=== PATIENT | female | born 1970 | race Caucasian/White ===

== ENCOUNTER 2018-12-06 23:30 | Emergency (ER) | payer MEDICARE, MEDICAID ==
[2018-12-06] MEDS ORDERED: Ketorolac 60 MG/2 ML SDV IM ONE (23:50)
--- NOTE | 2018-12-06 23:50 | EDM.PDOC ---
ED HPI GENERAL MEDICAL PROBLEM - General Chief Complaint: Lower Extremity Injury/Pain Stated Complaint: lower leg pain Time Seen by Provider: 12/06/18 23:40 Source of Information: Reports: Patient - History of Present Illness INITIAL COMMENTS - FREE TEXT/NARRATIVE: Pranav is a 47 y/o patient who presents to the ER with complaints of bilateral lower leg pain. She has a history of bilateral lower leg injuries and is s/p gastrocnemius resection in both lower extremities. She usually takes Tramadol and Flexeril with good pain relief. Tonight she did fall in the shower, but she denies new injury and states it was because of the pain. She rates the pain 10/ 10 and she took her meds 2 hours ago, but they have not helped tonight. Bilateral Lower Leg Pain Score (Numeric/FACES): 10 - Related Data Allergies Allergy/AdvReac Type Severity Reaction Status Date / Time aspirin Allergy Nausea and Verified 12/06/18 23:54 Vomiting bee venom protein (honey bee) Allergy Anaphylactic Verified 12/06/18 23:54 Shock cefprozil [From Cefzil] Allergy Hives Verified 12/06/18 23:54 codeine Allergy Anaphylactic Verified 12/06/18 23:54 Shock gabapentin Allergy Other Verified 12/06/18 23:54 green pepper Allergy Stomach Verified 12/06/18 23:54 Ache hydroxyzine Allergy Hives Verified 12/06/18 23:54 ibuprofen Allergy Nausea and Verified 12/06/18 23:54 Vomiting Influenza Virus Vaccines Allergy Nausea and Verified 12/06/18 23:54 Vomiting latex Allergy Wheezing Verified 12/06/18 23:54 levofloxacin [From Levaquin] Allergy Nausea and Verified 12/06/18 23:54 Vomiting metformin Allergy Other Verified 12/06/18 23:54 metronidazole Allergy Edema Verified 12/06/18 23:54 mushroom Allergy Nausea and Verified 12/06/18 23:54 Vomiting onion Allergy Stomach Verified 12/06/18 23:54 Ache oxycodone Allergy Hives Verified 12/06/18 23:54 Penicillins Allergy Wheezing Verified 12/06/18 23:54 prednisone Allergy Other Verified 12/06/18 23:54 strawberry Allergy Anaphylactic Verified 12/06/18 23:54 Shock sucralfate [From Carafate] Allergy Other Verified 12/06/18 23:54 Sulfa (Sulfonamide Allergy Hives Verified 12/06/18 23:54 Antibiotics) tomato Allergy Stomach Verified 12/06/18 23:54 Ache Home Meds: Home Meds Acetaminophen 2 tab PO QID PRN 12/06/18 [History] Albuterol Sulfate [Albuterol Sulfate Hfa] 2 puff IH Q4H PRN 12/06/18 [History] Albuterol [Proventil Neb Soln] 2.5 mg INH Q4HR PRN 12/06/18 [History] Albuterol/Ipratropium [DuoNeb 3.0-0.5 MG/3 ML] 3 ml INH Q6H 12/06/18 [History] Betamethasone/Clotrimazole [Lotrisone] 15 gm TOP BID 12/06/18 [History] Celecoxib [CeleBREX] 200 mg PO DAILY 12/06/18 [History] FLUoxetine HCl [Prozac] 20 mg PO DAILY 12/06/18 [History] Fesoterodine Fumarate [Toviaz] 4 mg PO DAILY 12/06/18 [History] Furosemide [Lasix] 20 mg PO DAILY 12/06/18 [History] Levocetirizine Dihydrochloride [Xyzal] 5 mg PO BEDTIME 12/06/18 [History] Metoclopramide HCl [Reglan] 10 mg PO QID PRN 12/06/18 [History] Montelukast Sodium [Singulair] 10 mg PO BEDTIME 12/06/18 [History] Omeprazole Magnesium [Prilosec Otc] 40 mg PO DAILY 12/06/18 [History] QUEtiapine [SEROquel] 100 mg PO ASDIRECTED PRN 12/06/18 [History] Rizatriptan Benzoate [Rizatriptan] 10 mg PO ASDIRECTED PRN 12/06/18 [History] SUMAtriptan [Imitrex] 6 mg SQ ASDIRECTED PRN 12/06/18 [History] Sennosides/Docusate Sodium [Senna-S] 1 each PO BID 12/06/18 [History] Triamcinolone Acetonide [Kenalog 0.1% Crm] 15 gm TOP BID 12/06/18 [History] lamoTRIgine [Lamictal] 25 mg PO DAILY 12/06/18 [History] raNITIdine HCl [Zantac] 150 mg PO BID 12/06/18 [History] tiZANidine [Zanaflex] 4 mg PO ASDIRECTED 12/06/18 [History] Past Medical History Musculoskeletal History: Reports: Other (See Below) (Bilateral L/E Injury) - Past Surgical History Musculoskeletal Surgical History: Reports: Other (See Below) ( Bilateral gastrocnemius resection) Review of Systems - Review of Systems Review Of Systems: See Below Constitutional: Reports: No Symptoms Eyes: Reports: No Symptoms Ears: Reports: No Symptoms Nose: Reports: No Symptoms Mouth/Throat: Reports: No Symptoms Respiratory: Reports: No Symptoms Cardiovascular: Reports: No Symptoms GI/Abdominal: Reports: No Symptoms Genitourinary: Reports: No Symptoms Musculoskeletal: Reports: Leg Pain (bilateral lower) Skin: Reports: No Symptoms Neurological: Reports: No Symptoms Psychiatric: Reports: No Symptoms ED EXAM, GENERAL - Physical Exam Exam: See Below Exam Limited By: No Limitations General Appearance: Alert, WD/WN, No Apparent Distress (adult female) Ears: Normal External Exam, Hearing Grossly Normal Nose: Normal Inspection, Normal Mucosa Throat/Mouth: Normal Inspection, Normal Lips, Normal Teeth, Normal Voice Head: Atraumatic, Normocephalic Neck: Supple Respiratory/Chest: No Respiratory Distress, Lungs Clear, Normal Breath Sounds, Chest Non-Tender Cardiovascular: Normal Peripheral Pulses, Regular Rate, Rhythm, No JVD GI/Abdominal: Soft (Female) Exam: Deferred Rectal (Female) Exam: Deferred Back Exam: Normal Inspection Extremities: Normal Capillary Refill, Leg Pain. No: Increased Warmth, Redness ( note tenderness to both lower legs with palpation, no deformity noted, no obvious injury ) Neurological: Alert, Oriented, CN II-XII Intact Psychiatric: Normal Affect, Normal Mood Skin Exam: Warm, Dry, Intact, Normal Color, No Rash Lymphatic: No Adenopathy Course - Vital Signs Text/Narrative:: The patient was seen by the ASSISTANT CURATOR. Xrays ordered. She was given Toradol 60 mg IM for pain. 0045 Patient reports that she has had very little relief of her pain. ASSISTANT CURATOR asked the patient what works for her due to her extensive allergy list. Patient responded, "I don't know." Dilaudid 1 mg SQ ordered. 0120 Xrays were reviewed by ASSISTANT CURATOR. Patient reported that she was having a decrease in her pain.The patient was given discharge instructions and sent home in stable condition. Last Recorded V/S: Last Vital Signs Temp 36.1 C 12/06/18 23:35 Pulse 80 12/06/18 23:35 Resp 16 12/06/18 23:35 BP 185/77 H 12/06/18 23:35 Pulse Ox - Orders/Labs/Meds Orders: Active Orders 24 hr Category Date Time Status Tibia Fibula Bi [CR] Stat Exams 12/06/18 23:51 Taken HYDROmorphone [Dilaudid] Med 12/07/18 00:46 Once 1 mg SUBCUT ONETIME ONE Medication Orders Hydromorphone HCl (Dilaudid) 1 mg SUBCUT ONETIME ONE Stop: 12/07/18 00:47 Meds: Medications Generic Name Dose Route Start Last Admin Trade Name Freq PRN Reason Stop Dose Admin Hydromorphone HCl 1 mg 12/07/18 00:46 Dilaudid SUBCUT 12/07/18 00:47 ONETIME ONE Discontinued Medications Generic Name Dose Route Start Last Admin Trade Name Freq PRN Reason Stop Dose Admin Ketorolac Tromethamine 60 mg 12/06/18 23:50 12/06/18 23:58 Toradol IM 12/06/18 23:51 60 mg ONETIME ONE Administration - Radiology Interpretation Free Text/Narrative:: XR bilateral lower extremities=no acute findings, note heel spurs (Final report pending) Departure - Departure Time of Disposition: 01:30 Disposition: Home, Self-Care 01 Condition: Good Clinical Impression: Bilateral lower extremity pain - Discharge Information Instructions: Musculoskeletal Pain, Heat Therapy Forms: ED Department Discharge Additional Instructions: -Continue the pain medications that you have at home -Use heat as needed for pain -Follow up with your PCP to discuss further treatment options -Make an appointment to follow up with your Can Filling Machine Operator for recheck - Problem List & Annotations (1) Bilateral lower extremity pain SNOMED Code(s): 08176160 Code(s): M79.604 - PAIN IN RIGHT LEG; M79.605 - PAIN IN LEFT LEG Status: Acute Current Visit: Yes - My Orders Last 24 Hours: My Active Orders 12/06/18 23:51 Tibia Fibula Bi [CR] Stat 12/07/18 00:46 HYDROmorphone [Dilaudid] 1 mg SUBCUT ONETIME ONE - Assessment/Plan Last 24 Hours: My Active Orders 12/06/18 23:51 Tibia Fibula Bi [CR] Stat 12/07/18 00:46 HYDROmorphone [Dilaudid] 1 mg SUBCUT ONETIME ONE
[2018-12-07] MEDS ORDERED: HYDROmorphone 1 MG/ML Syringe SUBCUT ONE (00:46)
--- NOTE | 2018-12-07 08:27 | CR ---
[id number] RAD/RAD Tibia Fibula Right Exam: RAD Tibia Fibula Right Indication:STATUS POST FALL, PAIN. HISTORY OF ORIF BILATERAL. Comparison: No prior imaging for comparison. Discussion: No fracture. Subcutaneous soft tissue edema in the lower leg. Single lateral view of the foot is unremarkable. However if there is clinical concern forefoot injury, dedicated views of the foot are recommended. Impression: As above. Garland Grey MD 12/07/18 0824 Thank you for allowing us to participate in the care of your patient.
--- NOTE | 2018-12-07 08:33 | CR ---
[id number] RAD/RAD Tibia Fibula Left Exam: RAD Tibia Fibula Left Indication:STATUS POST FALL, PAIN. HISTORY OF ORIF BILATERAL. Comparison: No prior imaging for comparison. Discussion: Mild subcutaneous soft tissue edema the lower leg. Bones are normal. Achilles enthesopathy at its calcaneal attachment. Plantar calcaneal spur. Impression: As above. Garland Grey MD 12/07/18 0832 Thank you for allowing us to participate in the care of your patient.
== END 2018-12-07 01:29 | disposition home or self-care (01) ==
LOC: VM.ED 23:30
DX: M79.604 Pain in right leg (principal); M79.605 Pain in left leg; Z88.0 Allergy status to penicillin; Z88.1 Allergy status to other antibiotic agents; Z88.2 Allergy status to sulfonamides; Z88.5 Allergy status to narcotic agent; Z88.6 Allergy status to analgesic agent; Z88.7 Allergy status to serum and vaccine; Z88.8 Allergy status to other drugs, medicaments and biological substances; Z91.018 Allergy to other foods; Z91.030 Bee allergy status; Z91.040 Latex allergy status
CPT/HCPCS: 73590; 96372; 99283; J1170; J1885

== ENCOUNTER 2019-03-09 19:58 | Emergency (ER) | payer MEDICARE, MEDICAID ==
--- NOTE | 2019-03-11 14:51 | EDM.PDOC ---
ED HPI GENERAL MEDICAL PROBLEM - General Chief Complaint: Skin Complaint Stated Complaint: BLISTER ON TOP OF R FOOT Time Seen by Provider: 03/09/19 20:18 Source of Information: Reports: Patient History Limitations: Reports: No Limitations - History of Present Illness INITIAL COMMENTS - FREE TEXT/NARRATIVE: Pt. presents to ER with complaints of rash to top of R foot. Pt. states that she has been using CARLOS hose post knee surgery and has noticed some irritation to her foot after wearing them. He has a history of latex allergy and feels that the irritation was from that. Denies any fever or chills. No chest pain or shortness or breath. Onset: Today Onset Date: 03/11/19 Location: Reports: Lower Extremity, Right Right Knee Pain Score (Numeric/FACES): 6 - Related Data Allergies Allergy/AdvReac Type Severity Reaction Status Date / Time bee venom protein (honey bee) Allergy Anaphylactic Verified 03/09/19 20:04 Shock cefprozil [From Cefzil] Allergy Hives Verified 03/09/19 20:04 codeine Allergy Anaphylactic Verified 03/09/19 20:04 Shock gabapentin Allergy Other Verified 03/09/19 20:04 hydroxyzine Allergy Hives Verified 03/09/19 20:04 ibuprofen Allergy Nausea and Verified 03/09/19 20:04 Vomiting latex Allergy Wheezing Verified 03/09/19 20:04 metformin Allergy Other Verified 03/09/19 20:04 metronidazole Allergy Edema Verified 03/09/19 20:04 oxycodone Allergy Hives Verified 03/09/19 20:04 Penicillins Allergy Wheezing Verified 03/09/19 20:04 prednisone Allergy Other Verified 03/09/19 20:04 strawberry Allergy Anaphylactic Verified 03/09/19 20:04 Shock sucralfate [From Carafate] Allergy Other Verified 03/09/19 20:04 Sulfa (Sulfonamide Allergy Hives Verified 03/09/19 20:04 Antibiotics) aspirin AdvReac Nausea and Verified 03/09/19 20:04 Vomiting green pepper AdvReac Stomach Verified 03/09/19 20:04 Ache Influenza Virus Vaccines AdvReac Nausea and Verified 03/09/19 20:04 Vomiting levofloxacin [From Levaquin] AdvReac Nausea and Verified 03/09/19 20:04 Vomiting mushroom AdvReac Nausea and Verified 01/17/20 20:04 Vomiting onion AdvReac Stomach Verified 03/09/19 20:04 Ache tomato AdvReac Stomach Verified 03/09/19 20:04 Ache Home Meds: Home Meds Acetaminophen 2 tab PO QID PRN 12/06/18 [History] Albuterol Sulfate [Albuterol Sulfate Hfa] 2 puff IH Q4H PRN 12/06/18 [History] Albuterol [Proventil Neb Soln] 2.5 mg INH Q4HR PRN 12/06/18 [History] Albuterol/Ipratropium [DuoNeb 3.0-0.5 MG/3 ML] 3 ml INH Q6H 12/06/18 [History] Betamethasone/Clotrimazole [Lotrisone] 15 gm TOP BID 12/06/18 [History] Celecoxib [CeleBREX] 200 mg PO DAILY 12/06/18 [History] FLUoxetine HCl [Prozac] 20 mg PO DAILY 12/06/18 [History] Fesoterodine Fumarate [Toviaz] 4 mg PO DAILY 12/06/18 [History] Furosemide [Lasix] 20 mg PO DAILY 12/06/18 [History] Levocetirizine Dihydrochloride [Xyzal] 5 mg PO BEDTIME 12/06/18 [History] Metoclopramide HCl [Reglan] 10 mg PO QID PRN 12/06/18 [History] Montelukast Sodium [Singulair] 10 mg PO BEDTIME 12/06/18 [History] Omeprazole Magnesium [Prilosec Otc] 40 mg PO DAILY 12/06/18 [History] QUEtiapine [SEROquel] 100 mg PO ASDIRECTED PRN 12/06/18 [History] Rizatriptan Benzoate [Rizatriptan] 10 mg PO ASDIRECTED PRN 12/06/18 [History] SUMAtriptan [Imitrex] 6 mg SQ ASDIRECTED PRN 12/06/18 [History] Sennosides/Docusate Sodium [Senna-S] 1 each PO BID 12/06/18 [History] Triamcinolone Acetonide [Kenalog 0.1% Crm] 15 gm TOP BID 12/06/18 [History] lamoTRIgine [Lamictal] 25 mg PO DAILY 12/06/18 [History] raNITIdine HCl [Zantac] 150 mg PO BID 12/06/18 [History] tiZANidine [Zanaflex] 4 mg PO BID 12/06/18 [History] Meloxicam 1 tab PO ASDIRECTED 03/09/19 [History] hydrOXYzine pamoate [Hydroxyzine Pamoate] 1 tab PO ASDIRECTED 03/09/19 [History] traMADol [Ultram] 50 mg PO ASDIRECTED 03/09/19 [History] Past Medical History HEENT History: Reports: Other (See Below) Other HEENT History: astigmatism, hyperopia, presbyopia, tear film insufficiency Respiratory History: Reports: Asthma Gastrointestinal History: Reports: Celiac Disease Genitourinary History: Reports: Other (See Below) Other Genitourinary History: hypertonicity of bladder, incomplete bladder emptying, mixed incontinence urge and stress, overactive bladder, suburethral sling procedure TRAFFIC MANAGER History: Reports: Polycystic Ovaries Musculoskeletal History: Reports: Other (See Below) Other Musculoskeletal History: equinus contracture of right ankle Neurological History: Reports: Migraines Psychiatric History: Reports: Depression, Other (See Below) Other Psychiatric History: confabulation, pseudoseizure Endocrine/Metabolic History: Reports: Other (See Below) Other Endocrine/Metabolic History: prediabetes Dermatologic History: Reports: Eczema, Other (See Below) Other Dermatologic History: irritant contact dermatitis due to detergent - Past Surgical History GI Surgical History: Reports: Cholecystectomy Female Surgical History: Reports: Tubal Ligation Musculoskeletal Surgical History: Reports: Other (See Below) Social & Family History - Family History Other HEENT Family History: Glaucoma; maternal gm and gf; father with glaucoma Cardiac: Reports: PR Oncologic: Reports: Bladder, Liver, Prostate - Tobacco Use Smoking Status *Q: Current Some Day Smoker Years of Tobacco use: 3 Packs/Tins Daily: 0.1 ED ROS GENERAL - Review of Systems Review Of Systems: Comprehensive ROS is negative, except as noted in HPI. ED EXAM, SKIN/RASH Exam: See Below Exam Limited By: No Limitations General Appearance: Alert, WD/WN, No Apparent Distress Peripheral Pulses: 4+: Radial (L), Radial (R) Extremities: Normal Inspection, Normal Range of Motion, Non-Tender, No Pedal Edema, Normal Capillary Refill, Other (mild superficial irritation to top of R foot/anterior ankle. No surrounding erythema.) Course - Vital Signs Last Recorded V/S: Last Vital Signs Temp 36.6 C 03/09/19 20:06 Pulse 66 03/09/19 20:06 Resp 16 03/09/19 20:06 BP 183/77 H 03/09/19 20:06 Pulse Ox 97 03/09/19 20:06 Departure - Departure Time of Disposition: 21:00 Disposition: Home, Self-Care 01 Clinical Impression: Contact dermatitis - Discharge Information Instructions: Rash Referrals: Izzy Botello MD [Primary Care Provider] - Forms: ED Department Discharge Additional Instructions: Keep dressing on for 5-7 days. Recheck in clinic if redness, swelling, or discharge from the area. Sepsis Event Note - Evaluation Sepsis Screening Result: No Definite Risk - Assessment/Plan Plan: Keep dressing on for 5-7 days. Recheck in clinic if redness, swelling, or discharge from the area.
== END 2019-03-09 20:28 | disposition home or self-care (01) ==
LOC: VM.ED 19:58
DX: L25.9 Unspecified contact dermatitis, unspecified cause (principal); J45.909 Unspecified asthma, uncomplicated; F17.210 Nicotine dependence, cigarettes, uncomplicated; F32.9 Major depressive disorder, single episode, unspecified; Z79.899 Other long term (current) drug therapy; Z91.040 Latex allergy status; Z88.8 Allergy status to other drugs, medicaments and biological substances; Z88.0 Allergy status to penicillin; Z91.018 Allergy to other foods; Z88.7 Allergy status to serum and vaccine; Z88.2 Allergy status to sulfonamides
CPT/HCPCS: 99282; 99283-GF